=== PATIENT | male | born 1970 | race Caucasian/White ===

== ENCOUNTER 2018-11-20 21:46 | Emergency (ER) | payer OTHER ==
[2018-11-20] MEDS ORDERED: ONDANSETRON DISINTEGRATING 4 MG TAB PO ONE (22:43)
[2018-11-20] MEDS ORDERED: AMOXICILLIN/CLAVULANATE POT 875/125 MG TAB PO ONE (23:28)
[2018-11-20] MEDS ORDERED: ONDANSETRON 4MG PREPACK#2 BTL TAKEHOME ONE (23:28)
--- NOTE | 2018-11-20 23:30 | EDPHY ---
H & P Time Seen by Provider: 11/20/18 21:57 HPI/ROS: Chief complaint: Dog bite to right foot History of present illness: 48-year-old male presents to the emergency department for evaluation of a dog bite to his right foot. Patient was at home getting ready for bed when his dog bit him. Appears dog was playing around. Dog is healthy, immunizations reported as up-to-date. Patient sustained a puncture wound between his 3rd and 4th toe. Mild pain. Bleeding has been controlled with a dressing. He reports his tetanus is up-to-date. He is still able to move the toes well. No report of abnormal coolness or paresthesias in the toe. No other complaints. Smoking Status: Never smoked Physical Exam: General: Alert, nontoxic. Skin: Puncture wound between the 3rd and 4th toe in the interdigital space. No foreign bodies noted. Musculoskeletal: No tenderness to the right foot. He is moving the digits well. He is moving the ankles well. He is ambulating. Vascular: Capillary refill brisk in all digits of the right foot. DP and PT pulses 2+. Neurologic: Sensation appears intact in the right foot including all digits. Constitutional: Initial Vital Signs Temperature (C) 36.7 C 11/20/18 21:53 Heart Rate 66 11/20/18 21:53 Respiratory Rate 16 11/20/18 21:53 Blood Pressure 124/77 H 11/20/18 21:53 O2 Sat (%) 95 11/20/18 21:53 O2 Delivery Mode Room Air Allergies/Adverse Reactions: No Known Allergies Allergy (Verified 11/20/18 21:52) Home Medications: Medication Instructions Recorded Thyroid,Pork [Joes Thyroid] 30 mg PO 03/27/14 buPROPion 03/27/14 Amoxicillin/Clavulanate Pot 875 mg PO BID #14 tab 11/20/18 [Augmentin 875 MG TAB (*)] MDM/Departure - MDM Imaging Results: Imaging Impressions Foot X-Ray 11/20/18 22:10 Impression: No acute osseous findings. Imaging: I viewed and interpreted images myself Medications Given: Discontinued Medications Amoxicillin/Clavulanate Potassium (Augmentin 875mg) 875 mg PO EDNOW ONE PRN Reason: Protocol Stop: 11/20/18 23:29 Last Admin: 05/18/19 23:36 Dose: 875 mg Ondansetron HCl (Zofran Odt) 4 mg PO EDNOW ONE Stop: 11/20/18 22:44 Last Admin: 11/20/18 22:44 Dose: 4 mg Ondansetron HCl (Zofran Odt 4 Mg Prepack#2) 1 btl TAKEHOME EDNOW ONE Stop: 11/20/18 23:29 Last Admin: 11/20/18 23:36 Dose: 1 btl ED Course/Re-evaluation: Patient seen under the supervision of my secondary supervising physician Dr. Aubrey Lee. Patient presents for a puncture wound from his dog to his right foot. His foot appears to be neurovascularly intact. He appears to have good musculoskeletal control. The wound is anesthetized and thoroughly irrigated. As this is an animal bite I do not Wanna primarily close this due to risk of infection. A dressing is placed and the toes are austyn-taped. He is placed on Augmentin. Home care is discussed. He is asked to follow up with his primary care doctor for recheck. Return precautions are given. Patient voiced understanding and agreement with plan. - Depart Disposition: Home, Routine, Self-Care Clinical Impression: Dog bite of foot Qualifiers: Encounter type: initial encounter Laterality: right Qualified Code(s): S91.351A - Open bite, right foot, initial encounter; W54.0XXA - Bitten by dog, initial encounter; W54.0XXA - Bitten by dog, initial encounter Condition: Good Instructions: Ondansetron (By mouth), Animal Bite (ED), Acute Wounds (ED) Additional Instructions: Follow-up with her primary care doctor this week for recheck Change dressing twice daily until wound has healed Take antibiotics as prescribed until finished If symptoms worsen or new symptoms develop return to the emergency room for recheck Prescriptions: Amoxicillin/Clavulanate Pot [Augmentin 875 MG TAB (*)] 875 mg PO BID #14 tab Referrals: Roland Wagner MD [Primary Care Provider] - As per Instructions
[2018-11-20 23:58] VITALS: BP 128/71
== END 2018-11-20 23:58 | disposition home or self-care (01) ==
DX: S91.134A Puncture wound without foreign body of right lesser toe(s) without damage to nail, initial encounter (principal); W54.0XXA Bitten by dog, initial encounter; Y92.003 Bedroom of unspecified non-institutional (private) residence as the place of occurrence of the external cause